=== PATIENT | male | born 1995 | race Caucasian/White ===

== ENCOUNTER → 2017-02-04 | Outpatient (CLI) | payer BC ==
--- NOTE | 2017-02-04 09:40 | DIAGNOSTIC IMAGING REPORT ---
LUMBAR SPINE MIN 4 VIEWS CLINICAL HISTORY: 21 years-old Male presenting with LOWER BACK PAIN. TECHNIQUE: Frontal, bilateral oblique, and lateral views of the lumbar spine and coned in lateral view of the lumbosacral junction were obtained. COMPARISON: None. FINDINGS: Vertebral bodies maintain normal height and alignment. Intervertebral disc spaces preserved. No osseous neural foraminal narrowing. No radiographic evidence of acute fracture or subluxation. Nonobstructive bowel gas pattern. IMPRESSION: No radiographic evidence of acute osseous injury of the lumbar spine or significant degenerative change. Electronically signed by: Stephen Reyes M.D. 02/04/2017 9:38 AM Dictated Date/Time: 02/04/2017 9:36 AM
== END | disposition home or self-care (01) ==
LOC: C.RDSM 12:25
PROVIDERS: ATTEND Internal Medicine
DX: M54.5 Low back pain (principal)